=== PATIENT | male | born 1940 | race Caucasian/White ===

== ENCOUNTER 2016-11-24 17:11 | Emergency (ER) | payer MEDICARE, OTHER ==
[2016-11-24] MEDS ORDERED: Pepcid 20 MG VIAL IV ONE ×2 (17:17→17:50)
[2016-11-24] MEDS ORDERED: Sodium Chloride 0.9% 1000 ML 1,000 ML IV SCH (17:30)
--- NOTE | 2016-11-24 17:37 | ERPHSYRPT ---
- History of Present Illness Time Seen by Provider: 11/24/16 17:17 Historian: patient, family (), other (Dr Wu) Patient Subjective Stated Complaint: PT STATES FOR THE PAST 2 WEEKS HE HAS HAD DARK STOOLS. HE STATES HIS CARDILOGIST TOOK HIM OFF ELOQUIS ON 11/23/16. PT STATES HE WAS SEEING DR. WU TODAY FOR BACK PAIN. PT SENT TO ER FOR LAB WORK. Triage Nursing Assessment: PT PALE, WARM, DRY. ABDOMEN SOFT NONTENDER. BOWEL SOUNDS PRESENT IN ALL 4 QUADS. Physician History: CC: black stools Hx: 76 y/o patient of Dr Wu/M[facility]. He has been on eliquis. He has had black stools for two weeks. No abd pain. Normal urination. He has had some dizziness and lightheadedness. He was supposed to get labs yesterday but did not due to mix up. A little orthostatic in office so sent for evaluation. Timing/Duration: week(s) (2) Severity of Pain-Max: moderate Severity of Pain-Current: moderate Allergies/Adverse Reactions: No Known Drug Allergies Allergy (Unverified 11/24/16 17:20) Home Medications: Finasteride 5 mg [Proscar 5 MG] 5 mg PO DAILY 11/24/16 [History] Pravastatin Sodium 20 mg PO DAILY 11/24/16 [History] Sotalol HCl 80 mg [Betapace 80 MG] 80 mg PO BID 11/24/16 [History] Hx Tetanus, Diphtheria Vaccination/Date Given: Yes (UP TO DATE) Hx Influenza Vaccination/Date Given: No Hx Pneumococcal Vaccination/Date Given: No Immunizations Up to Date: Yes - Review of Systems Constitutional: Malaise, Weakness (general), No Fever, No Chills Eyes: No Symptoms Ears, Nose, & Throat: No Symptoms Respiratory: No Cough, No Dyspnea Cardiac: No Chest Pain Abdominal/Gastrointestinal: Melena, No Abdominal Pain, No Nausea, No Vomiting Genitourinary Symptoms: No Dysuria Skin: No Rash Neurological: Dizziness (when upright), No Headache All Other Systems: Reviewed and Negative - Past Medical History Pertinent Past Medical History: Yes Cardiac History: Coronary Artery Disease, High Cholesterol, Hypertension - Past Surgical History Past Surgical History: Yes Cardiac: CABG Gastrointestinal: Appendectomy - Social History Smoking Status: Former smoker Exposure to second hand smoke: No Drug Use: none Patient Lives Alone: No - Nursing Vital Signs Nursing Vital Signs: Initial Vital Signs Temperature 97.4 F 11/24/16 17:12 Pulse Rate 60 11/24/16 17:12 Respiratory Rate 18 11/24/16 17:12 Blood Pressure 180/86 11/24/16 17:12 O2 Sat by Pulse Oximetry 100 11/24/16 17:12 Pain Scale Pain Intensity 0 - Physical Exam General Appearance: alert Eye Exam: PERRL/EOMI Ears, Nose, Throat Exam: normal ENT inspection, moist mucous membranes Neck Exam: normal inspection, non-tender, supple Respiratory Exam: normal breath sounds Cardiovascular Exam: regular rate/rhythm Gastrointestinal/Abdomen Exam: soft, No tenderness, No distention Rectal Exam: normal exam, normal rectal tone, other (liquid brown stool), No mass, No blood Extremity Exam: normal inspection, normal range of motion Neurologic Exam: alert, oriented x 3, cooperative, sensation nml, No motor deficits Skin Exam: warm, dry, No rash SpO2: 100 Oxygen Delivery: Room Air - Course Nursing assessment & vital signs reviewed: Yes Ordered Tests: Active Orders 24 hr Category Date Time Status Tree Inspector STAT Care 11/24/16 17:17 Active Clean Catch Urine Specimen STAT Care 11/24/16 17:17 Active IV Insertion STAT Care 11/24/16 17:17 Active NPO (ED) STAT Care 11/24/16 17:17 Active Orthostatic Vital Signs STAT Care 11/24/16 18:57 Active Pulse Oximetry (ED) STAT Care 11/24/16 17:17 Active CBC W DIFF Stat Lab 11/24/16 17:49 Completed CMP Stat Lab 11/24/16 17:49 Completed Lactic Acid Stat Lab 11/24/16 17:35 Completed Occult Blood,Stool Other Stat Lab 11/24/16 17:30 Completed PROTIME WITH INR Stat Lab 11/24/16 17:49 Completed PTT Stat Lab 11/24/16 17:49 Completed UA W/RFX UR CULTURE Stat Lab 11/24/16 17:45 Completed Medication Summary Generic Name Dose Route Start Last Admin Trade Name Freq PRN Reason Stop Dose Admin Sodium Chloride 1,000 mls @ 100 mls/hr 11/24/16 17:30 11/24/16 17:51 Sodium Chloride 0.9% 1000 Ml IV 12/24/16 17:29 100 mls/hr .Q10H [id number] Administration Discontinued Medications Generic Name Dose Route Start Last Admin Trade Name Mary Ann PRN Reason Stop Dose Admin Famotidine 20 mg 11/24/16 17:17 11/24/16 17:51 Pepcid 20 Mg Vial IV 11/24/16 17:18 20 mg STAT ONE Administration Famotidine Confirm 11/24/16 17:50 Pepcid 20 Mg Vial Administered 11/24/16 17:51 Dose 20 mg IV .STK-MED ONE Lab/Rad Data: Laboratory Result Diagrams 11/24/16 17:49 11/24/16 17:49 Laboratory Results 11/24/16 11/24/16 11/24/16 Range/Units 17:49 17:49 17:49 WBC (4.0-10.5) K/mm3 RBC (4.1-5.6) M/mm3 Hgb (12.5-18.0) gm/dl Hct (42-50) % MCV (78-100) fl MCH (26-32) pg MCHC (32-36) g/dl RDW (11.5-14.0) % Plt Count (150-450) K/mm3 MPV (6-9.5) fl Gran % (36.0-66.0) % Lymphocytes % (24.0-44.0) % Monocytes % (0.0-12.0) % Eosinophils % (0.00-5.0) % Basophils % (0.0-0.4) % Basophils # (0-0.4) INR 1.29 (0.8-3.0) APTT 33.7 (24.1-36.1) SECONDS Sodium 131 L (136-145) mEq/L Potassium 4.1 (3.5-5.1) mEq/L Chloride 101 (98-107) mEq/L Carbon Dioxide 27.1 (21-32) mEq/L Anion Gap 6.7 (5-15) MEQ/L BUN 23 H (9-20) mg/dL Creatinine 1.28 (0.55-1.30) mg/dl Estimated GFR 58 ML/MIN Glucose 97 (70-110) MG/DL Lactic Acid (0.4-2.0) Calcium 9.0 (8.5-10.1) mg/dL Total Bilirubin 0.30 (0.2-1.0) mg/dL AST 4 L (15-37) U/L ALT 25 (12-78) U/L Alkaline Phosphatase 77 (46-116) U/L Serum Total Protein 7.8 (6.4-8.2) gm/dL Albumin 3.8 (3.4-5.0) g/dL Ur Collection Type Urine Color (YELLOW) Urine Appearance (CLEAR) Urine pH (5-6) Ur Specific Grahn (1.005-1.025) Urine Protein (Negative) Urine Ketones (NEGATIVE) Urine Blood (0-5) Orlin/ul Urine Nitrite (NEGATIVE) Urine Bilirubin (NEGATIVE) Urine Urobilinogen (0-1) mg/dL Ur Leukocyte Esterase (NEGATIVE) Urine Glucose (NEGATIVE) mg/dL Stool Occult Blood (Negative) Specimen Received ABO Group O Rh Factor POSITIVE Antibody Screen NEGATIVE (NEGATIVE) 11/24/16 11/24/16 11/24/16 Range/Units 17:49 17:45 17:35 WBC 5.8 (4.0-10.5) K/mm3 RBC 3.52 L (4.1-5.6) M/mm3 Hgb 10.2 L (12.5-18.0) gm/dl Hct 32.1 L (42-50) % MCV 91.2 (78-100) fl MCH 28.9 (26-32) pg MCHC 31.8 L (32-36) g/dl RDW 14.1 H (11.5-14.0) % Plt Count 180 (150-450) K/mm3 MPV 10.0 H (6-9.5) fl Gran % 73.2 H (36.0-66.0) % Lymphocytes % 16.8 L (24.0-44.0) % Monocytes % 8.1 (0.0-12.0) % Eosinophils % 1.7 (0.00-5.0) % Basophils % 0.2 (0.0-0.4) % Basophils # 0.01 (0-0.4) INR (0.8-3.0) APTT (24.1-36.1) SECONDS Sodium (136-145) mEq/L Potassium (3.5-5.1) mEq/L Chloride (98-107) mEq/L Carbon Dioxide (21-32) mEq/L Anion Gap (5-15) MEQ/L BUN (9-20) mg/dL Creatinine (0.55-1.30) mg/dl Estimated GFR ML/MIN Glucose (70-110) MG/DL Lactic Acid 0.6 (0.4-2.0) Calcium (8.5-10.1) mg/dL Total Bilirubin (0.2-1.0) mg/dL AST (15-37) U/L ALT (12-78) U/L Alkaline Phosphatase (46-116) U/L Serum Total Protein (6.4-8.2) gm/dL Albumin (3.4-5.0) g/dL Ur Collection Type CCMS Urine Color YELLOW (YELLOW) Urine Appearance CLEAR (CLEAR) Urine pH 5.0 (5-6) Ur Specific Grahn 1.025 (1.005-1.025) Urine Protein NEGATIVE (Negative) Urine Ketones NEGATIVE (NEGATIVE) Urine Blood NEGATIVE (0-5) Orlin/ul Urine Nitrite NEGATIVE (NEGATIVE) Urine Bilirubin NEGATIVE (NEGATIVE) Urine Urobilinogen NORMAL (0-1) mg/dL Ur Leukocyte Esterase NEGATIVE (NEGATIVE) Urine Glucose NEGATIVE (NEGATIVE) mg/dL Stool Occult Blood (Negative) Specimen Received 11-24-16 1800 ABO Group Rh Factor Antibody Screen (NEGATIVE) 11/24/16 Range/Units 17:30 WBC (4.0-10.5) K/mm3 RBC (4.1-5.6) M/mm3 Hgb (12.5-18.0) gm/dl Hct (42-50) % MCV (78-100) fl MCH (26-32) pg MCHC (32-36) g/dl RDW (11.5-14.0) % Plt Count (150-450) K/mm3 MPV (6-9.5) fl Gran % (36.0-66.0) % Lymphocytes % (24.0-44.0) % Monocytes % (0.0-12.0) % Eosinophils % (0.00-5.0) % Basophils % (0.0-0.4) % Basophils # (0-0.4) INR (0.8-3.0) APTT (24.1-36.1) SECONDS Sodium (136-145) mEq/L Potassium (3.5-5.1) mEq/L Chloride (98-107) mEq/L Carbon Dioxide (21-32) mEq/L Anion Gap (5-15) MEQ/L BUN (9-20) mg/dL Creatinine (0.55-1.30) mg/dl Estimated GFR ML/MIN Glucose (70-110) MG/DL Lactic Acid (0.4-2.0) Calcium (8.5-10.1) mg/dL Total Bilirubin (0.2-1.0) mg/dL AST (15-37) U/L ALT (12-78) U/L Alkaline Phosphatase (46-116) U/L Serum Total Protein (6.4-8.2) gm/dL Albumin (3.4-5.0) g/dL Ur Collection Type Urine Color (YELLOW) Urine Appearance (CLEAR) Urine pH (5-6) Ur Specific Grahn (1.005-1.025) Urine Protein (Negative) Urine Ketones (NEGATIVE) Urine Blood (0-5) Orlin/ul Urine Nitrite (NEGATIVE) Urine Bilirubin (NEGATIVE) Urine Urobilinogen (0-1) mg/dL Ur Leukocyte Esterase (NEGATIVE) Urine Glucose (NEGATIVE) mg/dL Stool Occult Blood NEGATIVE (Negative) Specimen Received ABO Group Rh Factor Antibody Screen (NEGATIVE) - Progress Progress Note: 11/24/16 19:01 Pt stable. BP ok standing. HEme neg stool now. He has stopped eliquis for now. He wants to go home. Will release on protonix, cbc sunday, and Dr Wu follow up Sunday. Counseled pt/family regarding: lab results, diagnosis, need for follow-up - Departure Time of Disposition: 19:02 Departure Disposition: Home Clinical Impression: Melena Condition: Stable Critical Care Time: No Referrals: TRUPTI WU [Primary Care Provider] - Instructions: Gastrointestinal Bleeding Additional Instructions: No driving this . Get lab cbc Sunday. Follow up with Dr Wu Sunday. Return for problems or concerns. Rx protonix. Prescriptions: PANTOPRAZOLE 40 mg Tablet [Protonix 40MG Tablet] 40 mg PO DAILY #30 tab
[2016-11-24] MEDS ORDERED: Sodium Chloride 0.9% 1000 ML 1,000 ML ONE (17:50)
[2016-11-24 18:02] LABS: BASOPHIL % 0.2 % (0.0-0.4); Eosinophil % 1.7 % (0.00-5.0); Granulocytes % 73.2 % (36.0-66.0); Lymphocytes % 16.8 % (24.0-44.0); Mean Cell Volume 91.2 fl (78-100); Monocytes % 8.1 % (0.0-12.0); Platelet Count 180 K/mm3 (150-450); Red Blood Count 3.52 M/mm3 (4.1-5.6); Red Cell Distribution Width 14.1 % (11.5-14.0); White Blood Count 5.8 K/mm3 (4.0-10.5)
[2016-11-24 18:06] LABS: ADD URINE CULTURE? NO (NO); Bilirubin NEGATIVE (NEGATIVE); Blood NEGATIVE Ery/ul (0-5); COMPLETE URINE MICROSCOPIC? NO; Collection Type CCMS; Glucose NEGATIVE (NEGATIVE); Leukocyte Esterase NEGATIVE (NEGATIVE)
[2016-11-24 18:13] LABS: Mean Corpuscular Hemoglobin 28.9 pg (26-32)
[2016-11-24 18:17] LABS: INR 1.29 (0.8-3.0); PROTIME 14.6 SECONDS (8.83-12.87)
[2016-11-24 18:19] LABS: PTT 33.7 SECONDS (24.1-36.1)
[2016-11-24 18:27] LABS: ALBUMIN 3.8 g/dL (3.4-5.0); ANION GAP 6.7 MEQ/L (5-15); BILIRUBIN,TOTAL 0.3 mg/dL (0.2-1.0); Carbon Dioxide 27.1 mEq/L (21-32); Potassium 4.1 mEq/L (3.5-5.1); Total Protein 7.8 gm/dL (6.4-8.2)
[2016-11-24 19:04] VITALS: O2SAT 100
[2016-11-24 19:26] VITALS: BP 137/70; PULSE 69
== END 2016-11-24 19:25 | disposition home or self-care (01) ==
LOC: ED 17:11
DX: K92.1 Melena (principal); R42 Dizziness and giddiness; I25.10 Atherosclerotic heart disease of native coronary artery without angina pectoris; E78.00 Pure hypercholesterolemia, unspecified; I10 Essential (primary) hypertension; Z95.1 Presence of aortocoronary bypass graft
CPT/HCPCS: 36000; 36415; 80053; 81002; 82272; 83605; 85025; 85610; 85730; 86850; 86900; 86901; 93041; 96360; 96374; 99284

== ENCOUNTER 2017-02-16 13:28 | Emergency (ER) | payer MEDICARE, OTHER ==
--- NOTE | 2017-02-16 13:52 | ERPHSYRPT ---
- History of Present Illness Time Seen by Provider: 02/16/17 13:35 Source: patient, other (cardiac rehab) Physician History: CC: 76 y/o patient of Dr Wu/Dr Minoo Hawkins cardiology. He has hx of CABG earlier this year. He has been enrolled in cardiac rehab. He has done well. He has hx of a fib. He is on eliquis and sotolol. This AM he felt some weakness generally. BP a little low. Went to rehab. While on treadmill he has some arryhthmia so was sent to ER. No chest pain. No palpitations. No dyspnea. Feels fine right now. Timing/Duration: today Aspirin Treatment Today: 81 mg x 1, provided at home Allergies/Adverse Reactions: No Known Drug Allergies Allergy (Unverified 02/16/17 14:01) Home Medications: Pravastatin Sodium 20 mg PO DAILY 11/24/16 [History] Apixaban [Eliquis] 5 mg PO BID 02/16/17 [History] Aspirin [Aspirin EC] 81 mg PO DAILY 02/16/17 [History] Hx Tetanus, Diphtheria Vaccination/Date Given: Yes (UP TO DATE) Hx Influenza Vaccination/Date Given: No Hx Pneumococcal Vaccination/Date Given: No - Review of Systems Constitutional: Fatigue, Malaise, Weakness, No Fever, No Chills Eyes: No Symptoms Ears, Nose, & Throat: No Symptoms Respiratory: No Cough, No Dyspnea Cardiac: No Chest Pain, No Palpitations, No Syncope Abdominal/Gastrointestinal: No Abdominal Pain, No Nausea, No Vomiting Skin: No Rash Neurological: No Headache All Other Systems: Reviewed and Negative - Past Medical History Pertinent Past Medical History: Yes Cardiac History: Coronary Artery Disease, High Cholesterol, Hypertension - Past Surgical History Past Surgical History: Yes Cardiac: CABG Gastrointestinal: Appendectomy - Social History Smoking Status: Former smoker Exposure to second hand smoke: No Drug Use: none Patient Lives Alone: No - Nursing Vital Signs Nursing Vital Signs: Initial Vital Signs O2 Sat by Pulse Oximetry 98 02/16/17 13:30 Pain Scale Pain Intensity 0 - Physical Exam General Appearance: alert Eye Exam: PERRL/EOMI Ears, Nose, Throat Exam: normal ENT inspection, moist mucous membranes Neck Exam: normal inspection, non-tender, supple Respiratory Exam: normal breath sounds Cardiovascular Exam: regular rate/rhythm Gastrointestinal/Abdomen Exam: soft, No tenderness, No distention Back Exam: normal inspection Extremity Exam: normal inspection, normal range of motion Neurologic Exam: alert, oriented x 3, cooperative Skin Exam: warm, dry, No rash - Course Nursing assessment & vital signs reviewed: Yes EKG Interpreted by Me: RATE (60 atrial paced rhythm. QTc 408.), NORMAL QRS, NORMAL ST-T - Radiology Exams cxr X-ray Interpretation: Teleradiologist Report (borderline CM, no acute) Ordered Tests: Active Orders 24 hr Category Date Time Status Eligibility Specialist STAT Care 02/16/17 13:47 Active EKG-ER Only STAT Care 02/16/17 13:46 Active IV Insertion STAT Care 02/16/17 13:46 Active Pulse Oximetry (ED) STAT Care 02/16/17 13:46 Active Regular Diet Diet 02/16/17 Dinner Active CHEST 1 VIEW (PORTABLE) Stat Exams 02/16/17 13:47 Completed CBC W DIFF Stat Lab 02/16/17 14:00 Completed CMP Stat Lab 02/16/17 14:00 Completed MAGNESIUM Routine Lab 02/16/17 14:00 Completed PROTIME WITH INR Stat Lab 02/16/17 14:00 Completed PTT Stat Lab 02/16/17 14:00 Completed TROPONIN Q3H Lab 02/16/17 14:00 Completed TROPONIN Q3H Lab 02/16/17 17:00 Ordered TROPONIN Q3H Lab 02/16/17 20:00 Ordered TROPONIN Q3H Lab 02/16/17 23:00 Ordered TROPONIN Q3H Lab 02/17/17 02:00 Ordered Lab/Rad Data: Laboratory Result Diagrams 02/16/17 14:00 02/16/17 14:00 Laboratory Results 02/16/17 02/16/17 02/16/17 Range/Units 14:00 14:00 14:00 WBC (4.0-10.5) K/mm3 RBC (4.1-5.6) M/mm3 Hgb (12.5-18.0) gm/dl Hct (42-50) % MCV (78-100) fl MCH (26-32) pg MCHC (32-36) g/dl RDW (11.5-14.0) % Plt Count (150-450) K/mm3 MPV (6-9.5) fl Gran % (36.0-66.0) % Lymphocytes % (24.0-44.0) % Monocytes % (0.0-12.0) % Eosinophils % (0.00-5.0) % Basophils % (0.0-0.4) % Basophils # (0-0.4) INR 1.44 (0.8-3.0) APTT 37.5 H (24.1-36.1) SECONDS Sodium 139 (136-145) mEq/L Potassium 4.5 (3.5-5.1) mEq/L Chloride 105 (98-107) mEq/L Carbon Dioxide 27.7 (21-32) mEq/L Anion Gap 11.2 (5-15) MEQ/L BUN 15 (9-20) mg/dL Creatinine 1.18 (0.55-1.30) mg/dl Estimated GFR > 60 ML/MIN Glucose 92 (70-110) MG/DL Calcium 9.1 (8.5-10.1) mg/dL Magnesium 2.2 (1.8-2.4) mg/dL Total Bilirubin 0.30 (0.2-1.0) mg/dL AST 8 L (15-37) U/L ALT 19 (12-78) U/L Alkaline Phosphatase 59 (46-116) U/L Troponin I < 0.017 (0.000-0.056) ng/ml Serum Total Protein 7.7 (6.4-8.2) gm/dL Albumin 3.6 (3.4-5.0) g/dL 02/16/17 Range/Units 14:00 WBC 5.0 (4.0-10.5) K/mm3 RBC 4.06 L (4.1-5.6) M/mm3 Hgb 11.5 L (12.5-18.0) gm/dl Hct 36.4 L (42-50) % MCV 89.7 (78-100) fl MCH 28.3 (26-32) pg MCHC 31.6 L (32-36) g/dl RDW 13.6 (11.5-14.0) % Plt Count 182 (150-450) K/mm3 MPV 9.6 H (6-9.5) fl Gran % 72.2 H (36.0-66.0) % Lymphocytes % 16.3 L (24.0-44.0) % Monocytes % 10.5 (0.0-12.0) % Eosinophils % 0.6 (0.00-5.0) % Basophils % 0.4 (0.0-0.4) % Basophils # 0.02 (0-0.4) INR (0.8-3.0) APTT (24.1-36.1) SECONDS Sodium (136-145) mEq/L Potassium (3.5-5.1) mEq/L Chloride (98-107) mEq/L Carbon Dioxide (21-32) mEq/L Anion Gap (5-15) MEQ/L BUN (9-20) mg/dL Creatinine (0.55-1.30) mg/dl Estimated GFR ML/MIN Glucose (70-110) MG/DL Calcium (8.5-10.1) mg/dL Magnesium (1.8-2.4) mg/dL Total Bilirubin (0.2-1.0) mg/dL AST (15-37) U/L ALT (12-78) U/L Alkaline Phosphatase (46-116) U/L Troponin I (0.000-0.056) ng/ml Serum Total Protein (6.4-8.2) gm/dL Albumin (3.4-5.0) g/dL - Progress Progress Note: 02/16/17 16:11 Pt stable here. EKG and rhythm strips from rehab sent to Dr Bazan who reviewed them and advised this was paced rhythm and paroxysmal afib which is known and pt can go home and proceed with normal activity and therapy and call for problems. He has follow up scheduled in April. Counseled pt/family regarding: lab results, diagnosis, need for follow-up - Departure Time of Disposition: 16:12 Departure Disposition: Home Clinical Impression: Paroxysmal atrial fibrillation Condition: Stable Critical Care Time: No Referrals: TRUPTI WU [Primary Care Provider] - Instructions: Arrhythmias Additional Instructions: Take your normal medications and activity. Continue cardiac rehab. Call Dr Taylor for problems or concerns.
[2017-02-16 14:08] LABS: BASOPHIL % 0.4 % (0.0-0.4); Eosinophil % 0.6 % (0.00-5.0); Granulocytes % 72.2 % (36.0-66.0); Lymphocytes % 16.3 % (24.0-44.0); Mean Cell Volume 89.7 fl (78-100); Mean Corpuscular Hemoglobin 28.3 pg (26-32); Mean Platelet Volume 9.6 fl (6-9.5); Monocytes % 10.5 % (0.0-12.0); Platelet Count 182 K/mm3 (150-450); Red Blood Count 4.06 M/mm3 (4.1-5.6); Red Cell Distribution Width 13.6 % (11.5-14.0)
--- NOTE | 2017-02-16 14:08 | XRAY ---
Indication: Arrhythmia. Comparison: None Portable chest demonstrates borderline cardiomegaly, previous cardiothoracic surgery, and left-sided dual-lead pacemaker. Vascularity normal. No focal infiltrate, consolidation, or large effusion. Bony thorax intact. Impression: Borderline cardiomegaly. Negative for acute pneumonic process or CHF.
[2017-02-16 14:18] LABS: PTT 37.5 SECONDS (24.1-36.1)
[2017-02-16 14:33] LABS: INR 1.44 (0.8-3.0); PROTIME 16.1 SECONDS (8.83-12.87)
[2017-02-16 14:42] LABS: MAGNESIUM 2.2 mg/dL (1.8-2.4)
[2017-02-16 14:46] LABS: TROPONIN < 0.017 ng/ml (0.000-0.056)
[2017-02-16 14:50] LABS: ALBUMIN 3.6 g/dL (3.4-5.0); ALKALINE PHOSPHATASE 59 U/L (46-116); ANION GAP 11.2 MEQ/L (5-15); BLOOD UREA NITROGEN 15 mg/dL (9-20); CHLORIDE 105 mEq/L (98-107); Carbon Dioxide 27.7 mEq/L (21-32); Glucose 92 MG/DL (70-110); Potassium 4.5 mEq/L (3.5-5.1); SGOT/AST 8 U/L (15-37); SGPT/ALT 19 U/L (12-78); SODIUM 139 mEq/L (136-145); Total Protein 7.7 gm/dL (6.4-8.2)
[2017-02-16 15:49] VITALS: PULSE 67
[2017-02-16 16:22] VITALS: BP 109/65; O2SAT 99
== END 2017-02-16 16:29 | disposition home or self-care (01) ==
LOC: ED 13:28
DX: I48.0 Paroxysmal atrial fibrillation (principal); Z95.1 Presence of aortocoronary bypass graft; Z79.01 Long term (current) use of anticoagulants; Z79.899 Other long term (current) drug therapy
CPT/HCPCS: 36000; 36415; 71010; 80053; 83735; 84484; 85025; 85610; 85730; 93005; 93041; 99284